=== PATIENT | female | born 1970 | race Caucasian/White ===

== ENCOUNTER 2018-01-02 11:59 | Day surgery (SDC) | payer BC, OTHER ==
[~2018-01-02 11:59] MED LIST: Midazolam 1 MG/ML 2 ML SDV ONE; fentaNYL 100 MCG/2 ML SDV ONE
[2018-01-02] MEDS ORDERED: Sodium Chloride 0.9% 5 ML Syringe FLUSH PRN (12:00)
[2018-01-02] MEDS ORDERED: Sodium Chloride 0.9% 1,000 ML IV SCH (12:00)
[2018-01-02] MEDS ORDERED: Lidocaine 2% 5 ML SDV ONE (12:08)
[2018-01-02] MEDS ORDERED: Propofol 200 MG/20 ML SDV ONE (12:08)
[2018-01-02] MEDS ORDERED: Midazolam 1 MG/ML 2 ML SDV IV ONE (13:15)
[2018-01-02] MEDS ORDERED: Propofol 200 MG/20 ML SDV IV ONE (13:15)
[2018-01-02] MEDS ORDERED: fentaNYL 100 MCG/2 ML SDV IV ONE (13:15)
--- NOTE | 2018-01-02 13:54 | PCM.PRNOTE ---
- Free Text/Narrative Note: INFORMED CONSENT: Patient is here today for elective upper GI endoscopy. All aspects of this procedure have been discussed with the patient. All possible complications also, including possibility of perforation, infection, pain, bleeding, numbness of the throat, swallowing difficulty and unknown complications. In the event of perforation the patient may need surgical exploration to repair the defect. The patient understands fully well. Patient did not have any further questions for me at the end of my interview. The patient wishes for me to proceed. Indication: Abnormal CAT scan suggestive of a polyp in the stomach. INSTRUMENT USED: Video gastroscope ANESTHESIA: [MAC] ASA CLASSIFICATION: [2] PROCEDURE PERFORMED: [Upper gastrointestinal endoscopy and biopsy] PHARYNX: Normal. ESOPHAGUS: Normal. Proximal: Normal. Middle: Normal. Lower: Normal. GE Junction: Normal. STOMACH: Normal. Cardia: Normal. Fundus: Normal. Lesser Curvature: Normal. Greater Curvature: Normal. Antrum: Mild antral gastritis and question of small prepyloric ulcer.. Pylorus: Normal. DUODENUM: Normal. First Part: Normal. Second Part: Normal. Third Part: Normal. RETROFLEXION: Normal. BIOPSY: None. TOLERANCE: Excellent. COMPLICATIONS: None. No polyp was found. A small prepyloric ulcer-like area was noticed in the antrum and a biopsy was taken from this area.
[2018-01-02 16:18] VITALS: BP 128/78
== END 2018-01-02 15:35 | disposition home or self-care (01) ==
LOC: KA.SDS 11:59
PROVIDERS: ATTEND Family Medicine
DX: K25.9 Gastric ulcer, unspecified as acute or chronic, without hemorrhage or perforation (principal); E10.42 Type 1 diabetes mellitus with diabetic polyneuropathy; F32.9 Major depressive disorder, single episode, unspecified; E78.00 Pure hypercholesterolemia, unspecified; F41.1 Generalized anxiety disorder; E66.9 Obesity, unspecified; E03.9 Hypothyroidism, unspecified; Z88.1 Allergy status to other antibiotic agents; Z88.2 Allergy status to sulfonamides; Z88.8 Allergy status to other drugs, medicaments and biological substances; Z79.82 Long term (current) use of aspirin; Z79.899 Other long term (current) drug therapy; Z79.4 Long term (current) use of insulin
CPT/HCPCS: 43239; 81025; 82962; J2250; J2704; J3010

== ENCOUNTER 2018-03-27 07:38 | Inpatient (IN) | payer OTHER ==
[~2018-03-27 07:38] MED LIST changes: +Dexamethasone 4 MG/ML SDV ONE; +Lactated Ringers 1,000 ML ONE; +Propofol 200 MG/20 ML SDV ONE; -fentaNYL 100 MCG/2 ML SDV ONE; +fentaNYL 250 MCG/5 ML SDV ONE
[2018-03-27] MEDS ORDERED: Bacitracin/Neomycin/Polymyxin B Oint 0.9 GM U/D Packet ONE (07:43)
[2018-03-27] MEDS ORDERED: Bupivacaine 0.5%/EPINEPHrine 1:200,000 30 ML SDV ONE (07:43)
[2018-03-27] MEDS ORDERED: Methylene Blue 50 MG/10 ML Ampule ONE ×2 (07:44→09:45)
[2018-03-27] MEDS ORDERED: Sodium Chloride 0.9% 5 ML Syringe FLUSH PRN (08:00)
[2018-03-27] MEDS ORDERED: ceFAZolin 1 GM Vial ONE (08:00)
[2018-03-27] MEDS ORDERED: Sodium Chloride 0.9% 1,000 ML IV SCH (08:00)
[2018-03-27] MEDS ORDERED: 50% Dextrose in Water 50 ML Syringe IVPUSH ONE (08:30)
[2018-03-27] MEDS ORDERED: Lactated Ringers 1,000 ML ONE (08:47)
[2018-03-27] MEDS ORDERED: ePHEDrine 50 MG/ML SDV ONE (09:04)
[2018-03-27] MEDS ORDERED: Rocuronium 50 MG/5 ML Vial IV ONE (09:10)
[2018-03-27] MEDS ORDERED: Succinylcholine 200 MG/10 ML MDV IV ONE (09:10)
[2018-03-27] MEDS ORDERED: Midazolam 1 MG/ML 2 ML SDV IV ONE (09:10)
[2018-03-27] MEDS ORDERED: Neostigmine Methylsulfate 10 MG/10 ML MDV IV ONE (09:10)
[2018-03-27] MEDS ORDERED: Dexamethasone 4 MG/ML SDV IV ONE (09:10)
[2018-03-27] MEDS ORDERED: Scopolamine 1.5 MG Transdermal Patch TOP ONE (09:10)
[2018-03-27] MEDS ORDERED: Glycopyrrolate 0.2 MG/ML 5 ML MDV IV ONE (09:10)
[2018-03-27] MEDS ORDERED: ceFAZolin 1 GM Vial IVPUSH ONE (09:10)
[2018-03-27] MEDS ORDERED: Propofol 200 MG/20 ML SDV IV ONE (09:10)
[2018-03-27] MEDS ORDERED: fentaNYL 250 MCG/5 ML SDV IV ONE (09:10)
--- NOTE | 2018-03-27 09:11 | PCM.PN ---
- General Info Date of Service: 03/27/18 - Review of Systems Systems Review Comment:: 47-year-old female here for laparoscopically assisted vaginal hysterectomy and remove for oophorectomy. She has symptoms of pelvic pain and uterine prolapse. The patient is medically stable to proceed. She is the mother of 2 children born vaginally. Her test today is negative. There is been no significant change in her health status since her recent exam. I have discussed the proposed operative procedure with the patient. Expectations and the possible need to convert to laparotomy are reviewed. Risks such as but not limited to bleeding infection organ injury possible bladder or ureter injury are all discussed. The patient agrees to proceed. - Patient Data Vitals - Most Recent: Last Vital Signs Temp 98.4 F 03/27/18 07:57 Pulse 60 03/27/18 07:57 Resp 16 03/27/18 07:57 BP 113/69 03/27/18 07:57 Pulse Ox 94 L 03/27/18 07:57 Weight - Most Recent: 97.432 kg Lab Results Last 24 Hours: Laboratory Results - last 24 hr 03/26/18 03/27/18 Range/Units 10:35 07:45 Urine HCG, Qual Negative (NEGATIVE) Blood Type O POSITIVE Gel Antibody Screen Negative Crossmatch See Detail Med Orders - Current: Current Medications Sodium Chloride (Normal Saline) 1,000 mls @ 50 mls/hr IV ASDIRECTED [facility] Last Admin: 03/27/18 08:31 Dose: 50 mls/hr Sodium Chloride (Syrex Flush) 5 ml FLUSH Q8HR PRN PRN Reason: Keep Vein Open Discontinued Medications Bupivacaine HCl/Epinephrine Bitart (Marcaine 0.5%/Epinephrine 1:200,000) Confirm Administered Dose 30 ml .ROUTE .STK-MED ONE Stop: 03/27/18 07:44 Cefazolin Sodium (Ancef) Confirm Administered Dose 2 gm .ROUTE .STK-MED ONE Stop: 03/27/18 08:01 Dexamethasone (Dexamethasone) Confirm Administered Dose 4 mg .ROUTE .STK-MED ONE Stop: 03/27/18 07:19 Dextrose/Water (Dextrose 50% In Water) 25 ml IVPUSH ONETIME ONE Stop: 03/27/18 08:31 Last Admin: 03/27/18 08:36 Dose: 25 ml Fentanyl (Sublimaze) Confirm Administered Dose 250 mcg .ROUTE .STK-MED ONE Stop: 03/27/18 07:19 Lactated Ringer's (Ringers, Lactated) Confirm Administered Dose 1,000 mls @ as directed .ROUTE .STK-MED ONE Stop: 03/27/18 07:20 Lactated Ringer's (Ringers, Lactated) Confirm Administered Dose 1,000 mls @ as directed .ROUTE .STK-MED ONE Stop: 03/27/18 08:48 Methylene Blue (Provayblue) Confirm Administered Dose 50 mg .ROUTE .STK-MED ONE Stop: 03/27/18 07:45 Midazolam HCl (Versed 1 Mg/Ml) Confirm Administered Dose 2 mg .ROUTE .STK-MED ONE Stop: 03/27/18 07:19 Neomycin/Polymyxin/Bacitracin (Triple Antibiotic Oint) Confirm Administered Dose 2 each .ROUTE .STK-MED ONE Stop: 03/27/18 07:44 Propofol (Diprivan 20 Ml) Confirm Administered Dose 200 mg .ROUTE .STK-MED ONE Stop: 03/27/18 07:19 - Problem List Review Problem List Initiated/Reviewed/Updated: Yes - My Orders Last 24 Hours: My Active Orders 03/26/18 13:07 Resuscitation Status Routine 03/27/18 07:45 HCG QUALITATIVE,URINE [URCHEM] Routine 03/27/18 08:00 Blood Glucose Check, Bedside [RC] UPON Peripheral IV Care [RC] . DIRECTED Vital Signs [RC] PER UNIT ROUTINE Sodium Chloride 0.9% [Normal Saline] 1,000 ml IV ASDIRECTED Sodium Chloride 0.9% [Syrex Flush] 5 ml FLUSH Q8HR PRN Peripheral IV Insertion Adult [OM.PC] Routine Sequential Compression Device [OM.PC] Routine 03/27/18 08:30 Patient to Empty Bladder [RC] ASDIRECTED 03/27/18 08:55 Verify Patient Consent Obtain [RC] ASDIRECTED 03/27/18 Breakfast Nothing Per Oral Diet [DIET] - Assessment Assessment:: Pelvic pain Uterine prolapse - Plan Plan:: Laparoscopically assisted vaginal hysterectomy and oophorectomy
[2018-03-27] MEDS ORDERED: Bacitracin/Neomycin/Polymyxin B Oint 0.9 GM U/D Packet TOP ONE (09:45)
[2018-03-27] MEDS ORDERED: Bupivacaine 0.5%/EPINEPHrine 1:200,000 30 ML SDV INFILT ONE (09:45)
[2018-03-27] MEDS ORDERED: Scopolamine 1.5 MG Transdermal Patch ONE (10:28)
[2018-03-27] MEDS ORDERED: Ondansetron 4 MG/2 ML SDV IVPUSH PRN ×2 (11:37→20:24)
[2018-03-27] MEDS ORDERED: Morphine 2 MG/ML Syringe IVPUSH PRN (11:38)
[2018-03-27] MEDS ORDERED: Morphine 4 MG/ML Syringe IVPUSH PRN (11:38)
[2018-03-27] MEDS ORDERED: Albuterol 0.083% 2.5 MG/3 ML Neb Soln NEB PRN (11:39)
--- NOTE | 2018-03-27 12:06 | PCM.OPNOTE ---
- General Post-Op/Procedure Note Date of Surgery/Procedure: 03/27/18 Operative Procedure(s): Laparoscopically assisted vaginal hysterectomy with right salpingo-oophorectomy Findings: Normal sized uterus with smooth surface Small cysts on right ovary Left ovary surgically absent Pre Op Diagnosis: Pelvic pain. Uterine prolapse Post-Op Diagnosis: Same Anesthesia Technique: General ET Tube Primary Surgeon: Jose Contreras Receiving Weigher: Sola Severino Pathology: Uterus and Right ovary EBL in mLs: 100 Complications: None Condition: Good
[2018-03-27] MEDS ORDERED: Morphine PF 30 MG/30 ML PCA Vial IV PRN (12:08)
[2018-03-27] MEDS ORDERED: Lactated Ringers 1,000 ML IV SCH (12:15)
[2018-03-27] MEDS: fentaNYL 100 MCG/2 ML SDV IVPUSH PRN ×2 (12:15→12:25)
[2018-03-27] MEDS ORDERED: SUMAtriptan 25 MG Tab PO PRN (12:18)
[2018-03-27] MEDS ORDERED: Cyclobenzaprine 10 MG Tab PO PRN (12:18)
[2018-03-27] MEDS ORDERED: traMADol 50 MG Tab PO PRN (12:18)
[2018-03-27] MEDS ORDERED: Albuterol 8 GM Inhaler INH PRN (12:18)
[2018-03-27] MEDS ORDERED: VARENICLINE TARTRATE 0.5 MG PO SCH (12:30)
[2018-03-27] MEDS: Ketorolac 30 MG/ML SDV IM SCH ×2 (14:21→17:47)
[2018-03-27] MEDS: Insulin Aspart 100 Units/ML 3 ML Pen SUBCUT SCH ×4 (16:12→22:08)
[2018-03-27] MEDS: ceFAZolin 1 GM in Sodium Chloride 0.9% 100 ML IV SCH (17:45)
[2018-03-27] MEDS ORDERED: Ketorolac 30 MG/ML SDV IVPUSH PRN (20:24)
[2018-03-27] MEDS ORDERED: Simvastatin 20 MG Tab PO SCH (21:00)
[2018-03-27] MEDS: Tolterodine 2 MG Tab PO SCH (21:58)
[2018-03-27] MEDS: Gabapentin 300 MG Cap PO SCH (21:58)
[2018-03-28] MEDS: Ketorolac 30 MG/ML SDV IVPUSH SCH ×3 (00:32→12:25)
[2018-03-28] MEDS: ceFAZolin 1 GM in Sodium Chloride 0.9% 100 ML IV SCH ×2 (00:43→09:51)
[2018-03-28] MEDS: Insulin Aspart 100 Units/ML 3 ML Pen SUBCUT SCH ×3 (02:01→09:29)
--- NOTE | 2018-03-28 02:01 | PROC ---
PROVIDER: Jose Contreras MD COTTON WASHER: Sola Severino MD. Cloth Hand necessary for retraction, exposure, and to improve efficiency. PRE-PROCEDURE DIAGNOSIS: Pelvic pain, uterine prolapse. POST-PROCEDURE DIAGNOSIS: Pelvic pain, uterine prolapse. PROCEDURE PERFORMED: Laparoscopically assisted vaginal hysterectomy and right salpingo-oophorectomy. INDICATIONS FOR SURGERY: This 47-year-old female has been having increasing difficulty with pelvic pain. She is also beginning to develop uterine prolapse and comes for hysterectomy and removal of her remaining ovary. FINDINGS: The patient's uterus was of normal size with a smooth surface. Her right ovary showed some small cysts, but otherwise appeared normal. Her left ovary had previously been surgically removed. There was not excessive scar tissue in the pelvis. There was a mild degree of uterine prolapse. PROCEDURE: The patient was taken to the operating room. She was given general endotracheal anesthesia and positioned in the dorsal lithotomy position. The bladder was emptied by straight catheterization. She was then sterilely prepped and draped. An infraumbilical stab wound incision was made, through this a Veress needle was inserted and pneumoperitoneum via this needle to a pressure of 15 mmHg was achieved with carbon dioxide. The Veress needle was replaced with a 5 mm trocar into which the 0 degree 5 mm laparoscopic camera was inserted. 12 mm trocars were placed under direct visualization in the right and left lower abdomen. All trocar sites were infiltrated with Marcaine prior to incision. Intraabdominal inspection was carried out and attention was turned to the pelvis. The uterus was exposed as was the right adnexa. The right infundibulopelvic ligament was stapled across with an Endo-SONIA using 2.5 mm staple lengths. An additional firing of this same stapler was then performed across the right round ligament and upper portion of the broad ligament. The left round ligament and upper portion of broad ligament were then stapled across and divided with another firing of this stapler. The peritoneum overlying the bladder just anterior to the uterus was then carefully incised to ensure that the bladder would not be injured and additional firings across the midportion of the broad ligament on the right and left sides of the uterus were taken with the Endo-SONIA stapler. The operating team then moved to the perineum. The cervix was exposed and a weighted speculum was placed. The cervix was inscribed circumferentially with cautery and then the peritoneum was entered posteriorly in the midline through the posterior vaginal wall. The right and the left uterosacral ligaments were then clamped, divided, and suture ligated with 0 Vicryl suture ligatures. The superior flap of the vagina and bladder was then carefully raised off the anterior surface of the cervix and uterus. This was performed in small increments bluntly, carefully avoiding any injury to the bladder. As the lateral attachments of the uterus became exposed, they were serially clamped, divided and suture ligated with 0 Vicryl suture ligatures. As exposure was gained, the peritoneum was able to be entered anteriorly and the remaining lateral attachments of the uterus including the uterine vessels and remaining attachments to the broad ligament were sterilely clamped, divided, and suture ligated with 0 Vicryl suture ligatures. This completely freed the uterus, which along with the right adnexa was removed. Careful inspection of the vaginal cuff showed no sign of complication and then angle sutures were placed in the lateral corners of the vaginal cuff with #1 Vicryl suture. A Rasmussen stitch was placed and the vaginal cuff was closed with a running #1 Vicryl and the Rasmussen stitch was tied. A Osorio catheter was inserted and methylene blue was instilled into the bladder. Careful inspection along the vaginal cuff showed no sign of blue leaking or any other complication. Reinspection intraabdominally with a laparoscope was carried out. The vaginal cuff and operative region were carefully examined. No blue was noted leaking along the areas of dissection and no sign of bleeding was noted. The pneumoperitoneum was then evacuated. The trocars were removed under direct visualization. The skin incisions were irrigated with Betadine and saline solution and were closed with interrupted 4-0 Vicryl in a subcuticular stitch. Steri-Strips and benzoin were applied. Antibiotic ointment and sterile dressings were placed. The patient was then awakened, extubated, and taken from the operating room in satisfactory condition. ESTIMATED BLOOD LOSS: 100 mL. COMPLICATIONS: None. PROGNOSIS: Good. /[id number]/MODL MTDD
[2018-03-28] MEDS ORDERED: Omeprazole 20 MG Cap.CR PO SCH (07:30)
[2018-03-28 07:50] LABS: ANION GAP 15.5 mmol/L (5-15); CHLORIDE,CL 101 mmol/L (98-115); SODIUM,NA 137 mmol/L (136-145)
[2018-03-28] MEDS ORDERED: FLUoxetine 10 MG Cap PO SCH (09:00)
[2018-03-28] MEDS ORDERED: Aspirin 81 MG Tab.Chew PO SCH (09:00)
[2018-03-28] MEDS ORDERED: Multivitamins with Minerals/Iron/Folic Acid/Lycopene Tab PO SCH (09:00)
[2018-03-28] MEDS ORDERED: Docusate Sodium 100 MG Cap PO ONE (09:08)
[2018-03-28] MEDS: Tolterodine 2 MG Tab PO SCH (09:23)
[2018-03-28] MEDS: Gabapentin 300 MG Cap PO SCH (09:23)
[2018-03-28] MEDS ORDERED: RELION GLUCOSE PO PRN (10:17)
[2018-03-28] MEDS: Acetaminophen/Codeine 300-30 MG Tab PO PRN ×2 (12:03→16:03)
[2018-03-28 15:44] VITALS: BP 114/64
--- NOTE | 2018-03-28 15:47 | PCM.DCSUM1 ---
Discharge Summary - Discharge Data Discharge Disposition: Home, Self-Care 01 Condition: Good - Patient Summary/Data Operative Procedure(s) Performed: Laparoscopically assisted vaginal hysterectomy with right salpingo-oophorectomy - Patient Instructions Diet: Usual Diet as Tolerated Activity: No Lifting Over 10 Pounds, No Strenuous Activities Showering/Bathing: May Shower, No Tub Bathing/Swimming Wound/Incision Care: Keep Operative Site/Wound Site Clean and Dry Notify Provider of: Fever, Increased Pain, Swelling and Redness, Drainage - Discharge Plan *PRESCRIPTION DRUG MONITORING PROGRAM REVIEWED*: Yes *COPY OF PRESCRIPTION DRUG MONITORING REPORT IN PATIENT YEN: Yes Prescriptions/Med Rec: Acetaminophen/Codeine [Tylenol with Codeine No.3 300MG/30MG] 2 tab PO Q4H PRN # 50 tablet PRN Reason: Pain Ondansetron [Zofran] 4 mg IVPUSH Q6H PRN #10 vial PRN Reason: Nausea/Vomiting Home Medications: Home Meds Aspirin 81 mg PO DAILY 04/13/16 [History] FLUoxetine [PROzac] 40 mg PO DAILY 04/13/16 [History] Gabapentin [Neurontin] 300 mg PO BID 04/13/16 [History] Insulin Aspart [NovoLOG] 50 units SUBCUT ASDIRECTED 04/13/16 [History] Multivitamin [Multi-Vitamin Daily] 1 tab PO DAILY 04/13/16 [History] SUMAtriptan [Imitrex] 100 mg PO DAILY PRN 04/13/16 [History] Simvastatin [Zocor] 40 mg PO BEDTIME 04/13/16 [History] Tolterodine [Detrol] 2 mg PO BID 04/13/16 [History] Albuterol [Ventolin HFA] 2 puff INH Q4H PRN 01/01/18 [History] Cyclobenzaprine [Flexeril] 10 mg PO TID PRN 01/01/18 [History] Meloxicam [Mobic] 15 mg PO DAILY 01/01/18 [History] traMADol [Ultram] 50 mg PO Q6H PRN 01/01/18 [History] Omeprazole 20 mg PO DAILY 03/26/18 [History] Varenicline Tartrate [Chantix] 0.5 mg PO ASDIRECTED 03/26/18 [History] Acetaminophen/Codeine [Tylenol with Codeine No.3 300MG/30MG] 2 tab PO Q4H PRN # 50 tablet 03/28/18 [Rx] Ondansetron [Zofran] 4 mg IVPUSH Q6H PRN #10 vial 03/28/18 [Rx] Patient Handouts: Laparoscopically Assisted Vaginal Hysterectomy Referrals: Sola Severino MD [Physician] - 04/10/18 (in [place]) - Patient Data Vitals - Most Recent: Last Vital Signs Temp 36.4 C 03/28/18 15:30 Pulse 65 03/28/18 15:30 Resp 16 03/28/18 15:30 BP 114/64 03/28/18 15:30 Pulse Ox 96 03/28/18 15:30 Weight - Most Recent: 97.432 kg I&O - Last 24 hours: Intake & Output 03/28/18 03/28/18 03/28/18 06:59 14:59 22:59 Intake Total 1503 1912 Output Total 1025 1400 Balance 478 512 Lab Results - Last 24 hrs: Laboratory Results - last 24 hr 03/26/18 03/27/18 03/27/18 Range/Units 10:35 13:34 16:04 WBC (5.0-10.0) 10^3/uL RBC (3.80-5.50) 10^6/uL Hgb (12.0-16.0) g/dL Hct (37.0-47.0) % MCV (82.0-92.0) fL MCH (27.0-31.0) pg MCHC (32.0-36.0) g/dL RDW (11.5-14.5) % Plt Count (150-300) 10^3/uL MPV (7.4-10.4) fL Sodium (136-145) mmol/L Potassium (3.3-5.3) mmol/L Chloride (98-115) mmol/L Carbon Dioxide (21.0-32.0) mmol/L Anion Gap (5-15) mmol/L BUN (6-25) mg/dL Creatinine (0.51-1.17) mg/dL Est Cr Clr Drug Dosing mL/min Estimated GFR (MDRD) mL/min Glucose mg/dL POC Glucose 315 H 283 H (74-106) mg/dl Calcium (8.7-10.3) mg/dL Crossmatch See Detail 03/27/18 03/27/18 03/28/18 Range/Units 17:30 21:57 01:58 WBC (5.0-10.0) 10^3/uL RBC (3.80-5.50) 10^6/uL Hgb (12.0-16.0) g/dL Hct (37.0-47.0) % MCV (82.0-92.0) fL MCH (27.0-31.0) pg MCHC (32.0-36.0) g/dL RDW (11.5-14.5) % Plt Count (150-300) 10^3/uL MPV (7.4-10.4) fL Sodium (136-145) mmol/L Potassium (3.3-5.3) mmol/L Chloride (98-115) mmol/L Carbon Dioxide (21.0-32.0) mmol/L Anion Gap (5-15) mmol/L BUN (6-25) mg/dL Creatinine (0.51-1.17) mg/dL Est Cr Clr Drug Dosing mL/min Estimated GFR (MDRD) mL/min Glucose mg/dL POC Glucose 328 H 407 H 318 H (74-106) mg/dl Calcium (8.7-10.3) mg/dL Crossmatch 03/28/18 03/28/18 03/28/18 Range/Units 06:03 07:25 07:25 WBC 12.0 H (5.0-10.0) 10^3/uL RBC 4.02 (3.80-5.50) 10^6/uL Hgb 12.8 (12.0-16.0) g/dL Hct 37.7 (37.0-47.0) % MCV 93.7 H (82.0-92.0) fL MCH 31.7 H (27.0-31.0) pg MCHC 33.8 (32.0-36.0) g/dL RDW 13.0 (11.5-14.5) % Plt Count 256 (150-300) 10^3/uL MPV 7.7 (7.4-10.4) fL Sodium 137 (136-145) mmol/L Potassium 4.4 (3.3-5.3) mmol/L Chloride 101 (98-115) mmol/L Carbon Dioxide 24.9 (21.0-32.0) mmol/L Anion Gap 15.5 H (5-15) mmol/L BUN 16 (6-25) mg/dL Creatinine 0.70 (0.51-1.17) mg/dL Est Cr Clr Drug Dosing 99.15 mL/min Estimated GFR (MDRD) > 60 mL/min Glucose 275 mg/dL POC Glucose 275 H (74-106) mg/dl Calcium 8.4 L (8.7-10.3) mg/dL Crossmatch 03/28/18 03/28/18 03/28/18 Range/Units 07:55 09:28 09:59 WBC (5.0-10.0) 10^3/uL RBC (3.80-5.50) 10^6/uL Hgb (12.0-16.0) g/dL Hct (37.0-47.0) % MCV (82.0-92.0) fL MCH (27.0-31.0) pg MCHC (32.0-36.0) g/dL RDW (11.5-14.5) % Plt Count (150-300) 10^3/uL MPV (7.4-10.4) fL Sodium (136-145) mmol/L Potassium (3.3-5.3) mmol/L Chloride (98-115) mmol/L Carbon Dioxide (21.0-32.0) mmol/L Anion Gap (5-15) mmol/L BUN (6-25) mg/dL Creatinine (0.51-1.17) mg/dL Est Cr Clr Drug Dosing mL/min Estimated GFR (MDRD) mL/min Glucose mg/dL POC Glucose 271 H 463 H 486 H (74-106) mg/dl Calcium (8.7-10.3) mg/dL Crossmatch Med Orders - Current: Current Medications Acetaminophen/Codeine Phosphate (Tylenol With Codeine No.3 300mg/30mg) 2 tab PO Q4H PRN PRN Reason: Pain Last Admin: 03/28/18 12:03 Dose: 1 tab Albuterol (Ventolin Hfa) 0 gm INH Q4H PRN PRN Reason: Shortness of Breath Aspirin (Aspirin) 81 mg PO DAILY [facility] Last Admin: 03/28/18 09:22 Dose: 81 mg Cyclobenzaprine HCl (Flexeril) 10 mg PO TID PRN PRN Reason: Muscle Spasm Last Admin: 03/27/18 18:42 Dose: 10 mg Fluoxetine HCl (Prozac) 40 mg PO DAILY [facility] Last Admin: 03/28/18 09:23 Dose: 40 mg Gabapentin (Neurontin) 300 mg PO BID [facility] Last Admin: 03/28/18 09:23 Dose: 300 mg Sodium Chloride (Normal Saline) 1,000 mls @ 50 mls/hr IV ASDIRECTED [facility] Last Admin: 03/27/18 08:31 Dose: 50 mls/hr Morphine Sulfate (Morphine [employer] 30 Mg In 30 Ml) 30 mg IV ASDIRECTED PRN; Protocol PRN Reason: Pain Last Admin: 03/27/18 15:22 Dose: 30 mg Multivitamins/Minerals (Centrum) 1 tab PO DAILY [facility] Last Admin: 03/28/18 09:22 Dose: 1 tab Omeprazole (Omeprazole) 20 mg PO ACBREAKFAST [facility] Last Admin: 03/28/18 06:35 Dose: 20 mg Ondansetron HCl (Zofran) 4 mg IVPUSH Q6H PRN PRN Reason: Nausea/Vomiting Relion Glucose (Tablets 4g) 1 each PO ASDIRECTED PRN PRN Reason: Blood Glucose Simvastatin (Zocor) 40 mg PO BEDTIME [facility] Last Admin: 03/27/18 21:58 Dose: 40 mg Sodium Chloride (Syrex Flush) 5 ml FLUSH Q8HR PRN PRN Reason: Keep Vein Open Sumatriptan Succinate (Imitrex) 100 mg PO DAILY PRN PRN Reason: Headache/Pain Tolterodine Tartrate (Detrol) 2 mg PO BID [facility] Last Admin: 03/28/18 09:23 Dose: 2 mg Tramadol HCl (Ultram) 50 mg PO Q6H PRN PRN Reason: Pain Discontinued Medications Albuterol (Proventil Neb Soln) 2.5 mg NEB ONETIME PRN PRN Reason: Wheezing Stop: 03/27/18 14:00 Bupivacaine HCl/Epinephrine Bitart (Marcaine 0.5%/Epinephrine 1:200,000) Confirm Administered Dose 30 ml .ROUTE .STK-MED ONE Stop: 03/27/18 07:44 Last Admin: 03/27/18 13:11 Dose: Not Given Bupivacaine HCl/Epinephrine Bitart (Marcaine 0.5%/Epinephrine 1:200,000) 30 ml INFILT .STK-MED ONE Stop: 03/27/18 09:46 Last Admin: 03/27/18 09:45 Dose: 30 ml Cefazolin Sodium (Ancef) Confirm Administered Dose 2 gm .ROUTE .STK-MED ONE Stop: 03/27/18 08:01 Last Admin: 03/27/18 13:11 Dose: Not Given Cefazolin Sodium (Ancef) 2 gm IVPUSH .STK-MED ONE Stop: 03/27/18 09:11 Dexamethasone (Dexamethasone) Confirm Administered Dose 4 mg .ROUTE .STK-MED ONE Stop: 03/27/18 07:19 Last Admin: 03/27/18 13:01 Dose: Not Given Dexamethasone (Dexamethasone) 4 mg IV .STK-MED ONE Stop: 03/27/18 09:11 Dextrose/Water (Dextrose 50% In Water) 25 ml IVPUSH ONETIME ONE Stop: 03/27/18 08:31 Last Admin: 03/27/18 08:36 Dose: 25 ml Docusate Sodium (Colace) 100 mg PO ONETIME ONE Stop: 03/28/18 09:09 Last Admin: 03/28/18 09:22 Dose: 100 mg Ephedrine Sulfate (Ephedrine Sulfate) Confirm Administered Dose 100 mg .ROUTE .STK-MED ONE Stop: 03/27/18 09:05 Last Admin: 03/27/18 14:19 Dose: Not Given Fentanyl (Sublimaze) Confirm Administered Dose 250 mcg .ROUTE .STK-MED ONE Stop: 03/27/18 07:19 Last Admin: 03/27/18 13:02 Dose: Not Given Fentanyl (Sublimaze) 50 mcg IVPUSH Q5M PRN PRN Reason: Pain Stop: 03/27/18 14:00 Last Admin: 03/27/18 12:25 Dose: 50 mcg Fentanyl (Sublimaze) 250 mcg IV .STK-MED ONE Stop: 03/27/18 09:11 Glycopyrrolate (Robinul) 0.6 mg IV .STK-MED ONE Stop: 03/27/18 09:11 Lactated Ringer's (Ringers, Lactated) Confirm Administered Dose 1,000 mls @ as directed .ROUTE .STK-MED ONE Stop: 03/27/18 07:20 Last Admin: 03/27/18 13:11 Dose: Not Given Lactated Ringer's (Ringers, Lactated) Confirm Administered Dose 1,000 mls @ as directed .ROUTE .STK-MED ONE Stop: 03/27/18 08:48 Last Admin: 03/27/18 14:19 Dose: Not Given Lactated Ringer's (Ringers, Lactated) 1,000 mls @ 100 mls/hr IV ASDIRECTED [facility] Last Admin: 03/27/18 13:03 Dose: 100 mls/hr Cefazolin Sodium 1 gm/ Sodium (Chloride) 100 mls @ 100 mls/hr IV Q8H [facility] Stop: 03/28/18 09:59 Last Admin: 03/28/18 09:51 Dose: 100 mls/hr Insulin Aspart (Novolog) 0 unit SUBCUT WITHMEALSANDBED [facility]; Protocol Stop: 03/28/18 10:00 Last Admin: 03/28/18 09:29 Dose: 10 units Ketorolac Tromethamine (Toradol) 30 mg IM Q6H [facility] Stop: 03/28/18 06:16 Last Admin: 03/27/18 17:47 Dose: 30 mg Ketorolac Tromethamine (Toradol) 30 mg IVPUSH Q6H PRN PRN Reason: Pain Stop: 04/01/18 20:24 Ketorolac Tromethamine (Toradol) 30 mg IVPUSH Q6H [facility] Stop: 03/28/18 12:16 Last Admin: 03/28/18 12:25 Dose: Not Given Lactated Ringer's (Ringers, Lactated) 1,000 ml IRR .STK-MED ONE Stop: 03/27/18 09:46 Last Admin: 03/27/18 09:45 Dose: 1,000 ml Methylene Blue (Provayblue) Confirm Administered Dose 50 mg .ROUTE .STK-MED ONE Stop: 03/27/18 07:45 Last Admin: 03/27/18 13:11 Dose: Not Given Methylene Blue (Provayblue) 5 mg .XX .STK-MED ONE Stop: 03/27/18 09:46 Last Admin: 03/27/18 09:45 Dose: 5 mg Midazolam HCl (Versed 1 Mg/Ml) Confirm Administered Dose 2 mg .ROUTE .STK-MED ONE Stop: 03/27/18 07:19 Last Admin: 03/27/18 13:02 Dose: Not Given Midazolam HCl (Versed 1 Mg/Ml) 2 mg IV .STK-MED ONE Stop: 03/27/18 09:11 Morphine Sulfate (Morphine) 4 mg IVPUSH ONETIME PRN PRN Reason: Pain Stop: 03/27/18 14:00 Last Admin: 03/27/18 12:08 Dose: 4 mg Morphine Sulfate (Morphine) 1 - 2 mg IVPUSH Q5M PRN PRN Reason: Pain Stop: 03/27/18 14:00 Neomycin/Polymyxin/Bacitracin (Triple Antibiotic Oint) Confirm Administered Dose 2 each .ROUTE .STK-MED ONE Stop: 03/27/18 07:44 Last Admin: 03/27/18 13:11 Dose: Not Given Neomycin/Polymyxin/Bacitracin (Triple Antibiotic Oint) 2 each TOP .STK-MED ONE Stop: 03/27/18 09:46 Last Admin: 03/27/18 09:45 Dose: 2 each Neostigmine Methylsulfate (Neostigmine Methylsulfate) 3 mg IV .STK-MED ONE Stop: 03/27/18 09:11 Ondansetron HCl (Zofran) 4 mg IVPUSH ONETIME PRN PRN Reason: Nausea Stop: 03/27/18 14:00 Ondansetron HCl (Zofran) 4 mg IV .STK-MED ONE Stop: 03/27/18 09:11 Propofol (Diprivan 20 Ml) Confirm Administered Dose 200 mg .ROUTE .STK-MED ONE Stop: 03/27/18 07:19 Last Admin: 03/27/18 13:01 Dose: Not Given Propofol (Diprivan 20 Ml) 200 mg IV .STK-MED ONE Stop: 03/27/18 09:11 Rocuronium [place] (Zemuron) 50 mg IV .STK-MED ONE Stop: 03/27/18 09:11 Scopolamine (Transderm-Scop) Confirm Administered Dose 1.5 mg .ROUTE .STK-MED ONE Stop: 03/27/18 10:29 Last Admin: 03/27/18 14:20 Dose: Not Given Scopolamine (Transderm-Scop) 1.5 mg TOP .STK-MED ONE Stop: 03/27/18 09:11 Succinylcholine Chloride (Quelicin) 120 mg IV .STK-MED ONE Stop: 03/27/18 09:11
== END 2018-03-28 16:05 | disposition home or self-care (01) | DRG 983 ==
LOC: KA.SDS 07:38 → KA.MS 12:09
PROVIDERS: ADMIT Surgery; ATTEND Surgery
PROC: 0UT9FZZ Resection of Uterus, Via Natural or Artificial Opening With Percutaneous Endoscopic Assistance (ICD-10-PCS; principal; 2018-03-27)
PROC: 0UT0FZZ Resection of Right Ovary, Via Natural or Artificial Opening With Percutaneous Endoscopic Assistance (ICD-10-PCS; 2018-03-27)
PROC: 0UT5FZZ Resection of Right Fallopian Tube, Via Natural or Artificial Opening With Percutaneous Endoscopic Assistance (ICD-10-PCS; 2018-03-27)
DX: R10.2 Pelvic and perineal pain (principal); N81.4 Uterovaginal prolapse, unspecified
CPT/HCPCS: 36415; 80048; 81025; 82962; 85027; 86850; 86900; 86901; 86920; 86922; A9270-GY; J0330; J0690; J1100; J1815-GY; J1885; J2250; J2270; J2274; J2405; J2704; J2710; J3010; J3490; J7030; J7050; J7060; J7120